=== PATIENT | female | born 1970 | race Caucasian/White ===

== ENCOUNTER → 2024-01-05 19:21 | Outpatient (REF) | payer BC, SELFPAY | LOC: WDC 19:21 | PROVIDERS: ATTENDING PHYSICIAN Surgery; FAMILY PHYSICIAN Internal Medicine | DX: R92.2 Inconclusive mammogram (principal); Z12.31 Encounter for screening mammogram for malignant neoplasm of breast | CPT/HCPCS: 77063; 77067 ==

== ENCOUNTER 2024-05-29 10:43 | Emergency (ER) | payer BC, SELFPAY ==
[2024-05-29 10:46] VITALS: BP 130/76
--- NOTE | 2024-05-29 12:21 | ED.GENMED ---
History of Present Illness
General
Chief Complaint: Musculo-Skeletal Complaint
Source: patient
Exam Limitations: none
Time Seen by Provider: 05/29/24 12:02
Nursing documentation reviewed up to this point in time: agreed with
History of Present Illness
History of Present Illness:
pt is a 53 y/o F
with no sig pmh
here with L ankle inversion injury when she got tangled up in her dog's leash and fell, heard pop and is unable to weight bear
she landed on her knee and may have hit her chin
no LOC
occurred at 945 am
took ibuprofen shortly after
ice off and on
no other pains, no thinners, no confusion, no numbness/tingling/wekaness
Past History
Past History
ED Past Medical History: None
ED Past Surgical History: None
Social History
Tobacco: Non-smoker
Alcohol: None
Drug: None
Personal:
Living: with family
Employment: Employed
Review of Systems
Review of Systems
Allergies reviewed?: Yes
All Other Systems: Not applicable
Phy Exam
Physical Exam
Physical Exam:
GENERAL: Alert , in no apparent distress, comfortable at rest
HEAD: NCAT
CV: 2+ DP PULSES B/L
NEUROLOGICAL: Alert and oriented, no focal neuro deficits, , 5/5 strength, sensation intact, ambulation slight limp right leg
SKIN: Warm and dry,
MUSCULOSKELETAL: mild STS left ankle with tenderness to malleolus laterally; pain with inversion and eversion; no laxity
no tenderness at the base of the 5th metatarsal, no other foot tenderness
no knee/prox tib/fib tenderness, full painless ROM;
PSYCH: Normal and appropriate interaction.
Course
Orders/Labs/Results
Orders:
Orders
05/29/24 10:49
Ankle, left 3 view CR [CR Ankle - Left Min 3 Views ] Urgent
Comment:
Reason For Exam: injury
Vital Signs
Initial and Last Documented VS:
Initial Vital Signs
Temp Pulse Resp BP Pulse Ox
98.4 F 84 16 130/76 98
05/29/24 10:46 05/29/24 10:46 05/29/24 10:46 05/29/24 10:46 05/29/24 10:46
Last Documented Vital Signs
Temp Pulse Resp BP Pulse Ox
98.4 F 84 16 130/76 98
05/29/24 10:46 05/29/24 10:46 05/29/24 10:46 05/29/24 10:46 05/29/24 10:46
MDM/Problems Addressed
Differential Diagnosis Includes:
ankle sprain, ankle fracture
MDM/Problems Addressed:
53-year-old female with no medical problems had an inversion injury of her left ankle this morning when she was walking her dog. She felt a pop and was not able to weight-bear since. She has no foot pain but just lateral ankle pain and swelling.
She is applied ice and taking ibuprofen. On exam the patient's well-appearing in no distress with mild soft tissue swelling of the left lateral malleolus region of her ankle with tenderness to the anterior tip of the left lateral malleolus along
the insertion of the talar fibular ligament. Patient has no laxity. She has no foot tenderness specifically at the base of the fifth metatarsal. She had x-rays independently reviewed by me which were negative for fracture. She is likely an ankle
sprain. Will Rodrick wrap and apply an Aircast, instruct her to use her home crutches which she has used before to be partially weightbearing as tolerated. Ice ibuprofen and follow-up with Ortho as needed
*Critical Care Note
Total Time (30-74mins, 75-104mins- exclusive of procedures): Not Applicable
ED Attending Note
-
Portions of this chart may have been created with voice recognition software.� Occasional wrong word or��sound alike� substitutions may have occurred due to the inherent limitations of voice recognition software.
Discharge Plan
Departure
Patient Disposition: Home (Routine Discharge)
Date of Disposition: 05/29/24
Time of Disposition: 12:25
Patient with high blood pressure during this ER visit?: No
Covid-19: Not Applicable
Discharge Problem:
Left ankle sprain
Instructions: Sprain (DC)
Prescriptions:
No Action
acetaminophen [Tylenol Extra Strength] 500 MG tablet
1,000 mg PO PRN PRN (Reason: pain)
Referrals:
Helder Juares MD [Active] - Follow up in 2-3 days
Watson Mcbride MD [Family Provider] -
Activity Restrictions/Additional Instructions:
You likely sprained your ankle. Your x-ray showed no fracture. You can wear the Rodrick wrap and stirrup splint during the day and take them off at night. Ice off-and-on, take ibuprofen 3 times a day with food as needed for pain and swelling. You
can use the crutches at home to help you either avoid weightbearing for couple days or partially weight-bear until you feel like you are able to put more pressure on it. If by the end of the week you are still having trouble you should follow-up
with orthopedics. Otherwise increase your activity as tolerated
Interventions
Interventions:
*Risk Screen - Suicide Last Done: 05/29/24 10:46
*General Assessment Last Done: 05/29/24 10:46
*Neglect/Abuse Screening Last Done: 05/29/24 10:46
*ED COVID-19 Vaccine History Last Done: 05/29/24 11:42
ED-Musculoskeletal Assessment Last Done: 05/29/24 11:42
Discharge Date and Time
Print Language: MACANESE
[2024-05-29 12:52] VITALS: BP 127/87
== END 2024-05-29 13:03 | disposition home or self-care (01) ==
LOC: EMR 10:43
PROVIDERS: EMERGENCY PHYSICIAN Emergency Medicine; FAMILY PHYSICIAN Internal Medicine
DX: S93.402A Sprain of unspecified ligament of left ankle, initial encounter (principal); W19.XXXA Unspecified fall, initial encounter
CPT/HCPCS: 99283; 73610

== ENCOUNTER → 2024-07-04 07:53 | Outpatient (REF) | payer BC, SELFPAY | LOC: WDC 07:53 | PROVIDERS: ATTENDING PHYSICIAN Surgery; FAMILY PHYSICIAN Internal Medicine | DX: R92.2 Inconclusive mammogram (principal) | CPT/HCPCS: 76641 ==

== ENCOUNTER → 2024-07-12 13:30 | Outpatient (REF) | payer BC, SELFPAY | LOC: MRI 3T 13:30 | PROVIDERS: ATTENDING PHYSICIAN Orthopaedic Surgery; FAMILY PHYSICIAN Internal Medicine | DX: S76.012A Strain of muscle, fascia and tendon of left hip, initial encounter (principal) | CPT/HCPCS: 27093; 73525; 73722 ==

== ENCOUNTER → 2025-07-11 14:58 | Outpatient (REF) | payer BC, SELFPAY | LOC: HWRCS 14:58 | PROVIDERS: ATTENDING PHYSICIAN Internal Medicine | DX: R00.2 Palpitations (principal); R07.89 Other chest pain | CPT/HCPCS: 93306 ==

== ENCOUNTER → 2025-07-24 13:46 | Outpatient (REF) | payer BC, SELFPAY | LOC: HWWDC 13:46 | PROVIDERS: ATTENDING PHYSICIAN Internal Medicine; REFERRING PHYSICIAN Surgery | DX: Z12.31 Encounter for screening mammogram for malignant neoplasm of breast (principal) | CPT/HCPCS: 77063; 77067 ==